=== PATIENT | female | born 1935 | race Caucasian/White ===

== ENCOUNTER 2020-03-02 10:55 | Emergency (ER) | payer MEDICARE, SELFPAY ==
[2020-03-02 11:11] VITALS: BP 141/70; PULSE 74; RESP 14; TEMP 36.6; O2SAT 96; BMI 29.7
--- NOTE | 2020-03-02 11:14 | ED.FEMALEGU ---
HPI - Female Genitourinary <HI Cosby - Last Filed: 03/02/20 14:43> General Chief complaint: Urogenital-Female Stated complaint: BLADDER INFECTION Time Seen by Provider: 03/02/20 10:58 History of Present Illness HPI Narrative: 84yo female with history of a asthma, CHF, AICD (currently taking Eliquis) presents to the ED for dysuria, urinary frequency, and urinary urgency starting 2 days ago. She states her symptoms are worse today and she noticed she had cloudy urine. She states she used to have frequent urinary tract infections in the past but has not had an infection for 1.5 years. Patient states she stopped taking her cranberry pills about 3 months ago. She denies any fevers, chills, nausea, vomiting, diarrhea, flank pain, abdominal pain, dizziness, weakness, or any other concerns. She denies any allergies to antibiotics. Related Data Previous Rx's Medication Instructions Recorded nitrofurantoin macrocrystal 100 mg PO BID 5 Days #10 cap 03/02/20 phenazopyridine [Pyridium] 100 mg PO TID PRN #6 tab 03/02/20 Allergies Allergy/AdvReac Type Severity Reaction Status Date / Time morphine AdvReac Vomiting Verified 03/02/20 11:11 Review of Systems <HI Cosby - Last Filed: 03/02/20 14:43> Review of Systems Narrative: REVIEW OF SYSTEMS: GENERAL: Denies fever or chills. HENT: No head trauma. CARDIOVASCULAR: No chest pain. RESPIRATORY: No shortness of breath or cough. GASTROINTESTINAL: No nausea, vomiting, or abdominal pain, see HPI. GENITOURINARY: Reports dysuria, See HPI. MUSCULOSKELETAL: No trauma. INTEGUMENTARY: No rash, lesions, or pruritus. NEURO: No memory loss or confusion. Patient History <HI Cosby - Last Filed: 03/02/20 14:43> Medical History Asthma (Acute) CHF (congestive heart failure) (Acute) Presence of combination internal cardiac defibrillator (ICD) and pacemaker (Acute) Exam <IH Cosby - Last Filed: 03/02/20 14:43> Initial Vital Signs Initial Vital Signs: Vital Signs Temperature 98 F 03/02/20 11:11 Pulse Rate 74 03/02/20 11:11 Respiratory Rate 14 03/02/20 11:11 Blood Pressure 141/70 H 03/02/20 11:11 Pulse Oximetry 96 03/02/20 11:11 PHYSICAL EXAMINATION: GENERAL: Well groomed, alert, and cooperative. Answers questions promptly and appropriately. Vital signs noted. HENT: Normocephalic, atraumatic. Hearing intact. EYES: No periorbital swelling. CARDIOVASCULAR: Regular rate and rhythm, no murmurs P RESPIRATORY: Normal respiratory rate, trachea midline, airway patent. No stridor, nasal flaring or accessory muscle use. GASTROINTESTINAL: Bowel sounds normoactive. Abdomen is soft and non-tender. No organomegaly, no palpable masses. GENITALURINARY: No CVA tenderness. MUSCULOSKELETAL: Normal gait and coordination. Equal tone and mass bilaterally. SKIN: Warm, dry, soft, appropriate color for ethnicity. No lesions, rashes, or wounds to visulized areas. NEURO: Alert and Oriented X 3. Good coordination. No ataxia, or sensory deficits, or cognitive issues. PSYCH: Appropriate affect and mood. <David Miller DO - Last Filed: 03/02/20 15:00> Initial Vital Signs Initial Vital Signs: Vital Signs Temperature 98 F 03/02/20 11:11 Pulse Rate 74 03/02/20 11:11 Respiratory Rate 14 03/02/20 11:11 Blood Pressure 141/70 H 03/02/20 11:11 Pulse Oximetry 96 03/02/20 11:11 Course <HI Cosby - Last Filed: 03/02/20 14:43> Orders Ordered: ED Orders 03/02/20 10:58 Urine Culture Stat Urine Microscopic Stat Vital Signs Vital signs: Vital Signs - 8 hr 03/02/20 11:11 03/02/20 12:03 Temperature 98 F 98.1 F Pulse Rate 74 70 Respiratory Rate 14 14 Blood Pressure 141/70 H 116/71 Pulse Oximetry 96 96 <David Miller DO - Last Filed: 03/02/20 15:00> Orders Ordered: ED Orders 03/02/20 10:58 Urine Culture Stat Urine Microscopic Stat Vital Signs Vital signs: Vital Signs - 8 hr 03/02/20 11:11 03/02/20 12:03 Temperature 98 F 98.1 F Pulse Rate 74 70 Respiratory Rate 14 14 Blood Pressure 141/70 H 116/71 Pulse Oximetry 96 96 MDM - Female Genitourinary <HI Cosby - Last Filed: 03/02/20 14:43> Medical Records Attestation: I reviewed the patient's medical records. Lab Data Attestation: I reviewed the patient's lab results. Labs: Lab Results 03/02/20 Range/Units 10:58 Urine RBC 1-5/hpf (0-5/HPF) Urine WBC 30-100/hpf H (0-5/HPF) Ur Squamous Epith Cells 0-1 /hpf (0-5/HPF) Urine Bacteria Moderate (10-30) H (None) Ur Culture Indicated? Specimen cultured Urine Dip Bedside Urine Glucose Negative Bedside Urine Bilirubin - Negative Bedside Urine Ketone - Negative Urine Specific [place] 1.015 Bedside Urine Occult Blood + Bedside Urine pH 6.5 Bedside Urine Protein +/- 15 Bedside Urine Urobilinogen - Negative Bedside Urine Nitrite - Negative Bedside Urine Leukocytes +++ 500 Esterase MDM Narrative Medical decision making narrative: 84-year-old female presenting to the emergency department for dysuria past 3 days. She has a history of urinary tract infections and states this feels similar. Urine is positive for leukocyte Estrace. No concerns for sepsis or renal infection due to lack of CVA tenderness, lack of fatigue, fevers, or any systemic symptoms such as tachycardia or nausea. Patient is well-appearing, in no distress. Patient was discharged with antibiotics and Pyridium, she is encouraged to follow up with her primary care provider in 1-2 weeks for further evaluation. Urine was sent for a culture. <David Miller DO - Last Filed: 03/02/20 15:00> Lab Data Labs: Lab Results 03/02/20 Range/Units 10:58 Urine RBC 1-5/hpf (0-5/HPF) Urine WBC 30-100/hpf H (0-5/HPF) Ur Squamous Epith Cells 0-1 /hpf (0-5/HPF) Urine Bacteria Moderate (10-30) H (None) Ur Culture Indicated? Specimen cultured Urine Dip Bedside Urine Glucose Negative Bedside Urine Bilirubin - Negative Bedside Urine Ketone - Negative Urine Specific [place] 1.015 Bedside Urine Occult Blood + Bedside Urine pH 6.5 Bedside Urine Protein +/- 15 Bedside Urine Urobilinogen - Negative Bedside Urine Nitrite - Negative Bedside Urine Leukocytes +++ 500 Esterase Discharge Plan Departure Patient Disposition: Home Clinical Impression: Urinary tract infection Qualifiers: Urinary tract infection type: acute cystitis Hematuria presence: without hematuria Qualified Code(s): N30.00 - Acute cystitis without hematuria Discharge Date/Time: 03/02/20 12:04 Instructions: DI for Urinary Tract Infection (UTI) Activity Restrictions/Additional Instructions: Thank you for entrusting me with your care today. As discussed, your urinalysis shows that you most likely have a urinary tract infection. I prescribed you antibiotics, please take these as directed. Finish the course of antibiotics even if you are starting to feel better. I have also prescribed you Pyridium which helps with urinary pain, this will turn your urine bright orange so do not be alarmed. Your urine was sent for culture, you will be called only if a change in antibiotics is needed. Please follow-up with your primary care provider this week if symptoms continue. Return emergency department for any new or worsening symptoms such as fevers, weakness, chills, worsening pain, nausea, vomiting, fatigue, or any other concerns. Prescriptions: New nitrofurantoin macrocrystal 100 mg capsule 100 mg PO BID 5 Days Qty: 10 RF: 0 phenazopyridine [Pyridium] 100 mg tablet 100 mg PO TID PRN (Reason: pain) Qty: 6 RF: 0 <David Miller, DO - Last Filed: 03/02/20 15:00> Cosign ED Attending Cosignature Attestation: Dr Miller Co-Sign Statement: I was available for consultation during this patient's emergency department visit. This chart is signed by myself for administrative purposes only. I did not have direct contact with this patient during this visit. They were seen independently by the APC.
[2020-03-02 11:31] LABS: Bacteria Urine Moderate (10-30); Culture Indicated Urine Specimen Cultured; RBC Urine 1-5/HPF (0-5/HPF); Squamous Epithelial Cell Urine 0-1 /HPF (0-5/HPF); WBC Urine 30-100/HPF (0-5/HPF)
[2020-03-02 12:03] VITALS: BP 116/71; PULSE 70; RESP 14; TEMP 36.7; O2SAT 96
== END 2020-03-02 12:04 | disposition home or self-care (01) ==
PROVIDERS: Emergency Provider Nurse Practitioner
DX: N30.00 Acute cystitis without hematuria (principal)
CPT/HCPCS: 81003; 81015; 87077; 87086; 87186; 99281; 99282